=== PATIENT | female | born 1980 | race African-American/Black ===

== ENCOUNTER 2019-11-16 09:19 | Inpatient (IN) ==
[2019-11-16] MEDS ORDERED: NICOTINE 21 MG/24 HR PATCH TRANSDERM PRN (09:30)
[2019-11-16] MEDS ORDERED: THIAMINE INJ 100 MG, FOLIC ACID INJ 1 MG, MULTIVITAMIN INJ 10 ML in SODIUM CHLORIDE 0.9... IV ONE (09:30)
[2019-11-16] MEDS ORDERED: LORazepam 2 MG/1 ML VIAL IV PRN (09:30)
[2019-11-16] MEDS ORDERED: DICYCLOMINE 10 MG CAPSULE PO PRN (09:30)
[2019-11-16] MEDS ORDERED: PROMETHAZINE 25 MG/1 ML VIAL IM PRN (09:30)
[2019-11-16] MEDS ORDERED: ONDANSETRON 4 MG/2 ML VIAL IV PRN (09:30)
[2019-11-16 10:24] LABS: Basophils # 0.1 10*3/uL (0.0-0.2); Basophils % 0.8 % (0.0-0.8); Eosinophils # 0.4 10*3/uL (0.0-0.87); Eosinophils % 4.5 % (0.00-10.9); Hematocrit 33.6 VOL% (35.7-47.0); Hemoglobin 11.1 GM/DL (12.0-16.0); Immature Granulocytes % 0.8 %; Immature Granulocytes Absolute 0.06 #; Lymphocytes # 2.5 10*3/uL (1.4-4.0); Lymphocytes % 31.8 % (21.3-54.2); Mean Corpuscular Volume 97.7 FL (87-102); Mean Platelet Volume 10.7 FL (9.6-12.0); Monocytes % 6.8 % (1.7-12.7); Neutrophils % 55.3 % (38.7-73.9); Platelet Count 50 T/CUMM (130-400); Red Blood Count 3.44 MC/CUMM (3.8-5.5); Red Cell Distribution Width 20.2 % (9.3-17.3); White Blood Count 7.9 T/CUMM (4-12)
[2019-11-16 10:44] LABS: Hypochromasia Slight; Platelet Estimate Decreased; Target Cells Few
[2019-11-16] MEDS: LORazepam 1 MG TABLET PO SCH ×4 (11:03→20:38)
[2019-11-16] MEDS: chlordiazePOXIDE 25 MG CAPSULE PO SCH ×3 (11:04→20:37)
[2019-11-16] MEDS: PANTOPRAZOLE 40 MG TABLET PO SCH (11:04)
[2019-11-16 11:18] LABS: Albumin 2.5 G/DL (3.4-5.0); Bilirubin,Total 6.6 MG/DL (0.2-1.0); Calcium 8.8 MG/DL (8.5-10.1); Thyroid Stimulating Hormone 0.816 uIU/ml (0.358-3.74); Total Protein 7.5 G/DL (6.4-8.3)
[2019-11-16] MEDS ORDERED: GLUCAGON 1 MG VIAL IM PRN (11:28)
[2019-11-16] MEDS ORDERED: DEXTROSE 50% 25 GM/50 ML VIAL IV PRN (11:28)
[2019-11-16] MEDS ORDERED: POTASSIUM CHLORIDE 20 MEQ TABLET PO ONE (11:29)
[2019-11-16] MEDS: INSULIN REGULAR 100 UNIT/ML SUBCUT SCH ×3 (12:58→20:43)
[2019-11-16] MEDS ORDERED: MAGNESIUM SULF RIDER 4 GM in PREMIX 1 EACH IV ONE (13:24)
[2019-11-16] MEDS: POTASSIUM CHLORIDE INJ 40 MEQ in DEXTROSE 5% 1,000 ML IV SCH ×2 (17:23→20:42)
[2019-11-16] MEDS: BUTALBITAL/ACETAMIN/CAFFEINE 50-325-40 MG TABLET PO PRN (19:06)
[2019-11-16] MEDS: NAPROXEN 250 MG TABLET PO PRN (19:06)
[2019-11-16 20:48] LABS: Apearance,Urine CLEAR (Clear); Bacteria,Urine Occasional /HPF (Few); Blood, Urine Negative (Negative); Calcium Oxalate Crystals,Urine Few /HPF (Few); Glucose,Urine (UA) Negative (Negative); Hyaline Casts,Urine 1 /LPF (0-3); Ketones,Urine Negative (Negative); Mucus,Urine Occasional /LPF (Occasional); Nitrite,Urine Negative (Negative); Protein,Urine Negative; RBC,Urine 21 /HPF (0-4); Squamous Epithelial Cell,Urine Occasional /HPF (0-10); Urine Color Amber (Yellow); Urine Specific Gravity 1.016 (1.001-1.035); WBC,Urine 6 /HPF (0-6)
[2019-11-16 20:49] LABS: Bilirubin,Urine Small mg/dL (Negative)
[2019-11-16 20:55] LABS: Barbiturates Screen,Urine Negative (Negative); Benzodiazepines Screen,Urine Positive (Negative); Cannabinoid Screen,Urine Positive (Negative); Opiate Screen,Urine Negative (Negative); Phencyclidine Screen,Urine Negative (Negative)
[2019-11-17] MEDS: LORazepam 1 MG TABLET PO SCH ×5 (01:29→20:55)
[2019-11-17] MEDS: chlordiazePOXIDE 25 MG CAPSULE PO SCH ×3 (03:49→18:27)
[2019-11-17] MEDS: POTASSIUM CHLORIDE INJ 40 MEQ in DEXTROSE 5% 1,000 ML IV SCH (06:15)
[2019-11-17] MEDS: PANTOPRAZOLE 40 MG TABLET PO SCH (09:57)
[2019-11-17] MEDS: INSULIN REGULAR 100 UNIT/ML SUBCUT SCH ×4 (10:00→20:54)
[2019-11-17] MEDS: BUTALBITAL/ACETAMIN/CAFFEINE 50-325-40 MG TABLET PO PRN (20:59)
[2019-11-18] MEDS: chlordiazePOXIDE 25 MG CAPSULE PO SCH ×3 (01:29→17:51)
[2019-11-18] MEDS: LORazepam 1 MG TABLET PO SCH ×3 (03:40→17:51)
[2019-11-18 05:32] LABS: Calcium 8.2 MG/DL (8.5-10.1); Osmolality,Calculated 271.8 MOS/KG (273-304)
[2019-11-18] MEDS: INSULIN REGULAR 100 UNIT/ML SUBCUT SCH ×4 (07:40→20:31)
[2019-11-18] MEDS ORDERED: MAGNESIUM SULF RIDER 2 GM in PREMIX 1 EACH IV ONE (08:30)
[2019-11-18] MEDS: PANTOPRAZOLE 40 MG TABLET PO SCH (08:54)
[2019-11-18] MEDS: BUTALBITAL/ACETAMIN/CAFFEINE 50-325-40 MG TABLET PO PRN (12:47)
[2019-11-18] MEDS: NAPROXEN 250 MG TABLET PO PRN (17:51)
[2019-11-19] MEDS: chlordiazePOXIDE 25 MG CAPSULE PO SCH (02:13)
[2019-11-19] MEDS: LORazepam 1 MG TABLET PO SCH (02:13)
[2019-11-19] MEDS: HydrOXYzine PAMOATE 50 MG CAPSULE PO PRN ×2 (03:36→21:53)
[2019-11-19] MEDS: INSULIN REGULAR 100 UNIT/ML SUBCUT SCH ×4 (08:44→22:20)
[2019-11-19] MEDS: PANTOPRAZOLE 40 MG TABLET PO SCH (08:46)
[2019-11-19] MEDS: CIPROFLOXACIN 500 MG TABLET PO SCH ×2 (11:12→21:53)
[2019-11-19] MEDS: NAPROXEN 250 MG TABLET PO PRN (16:41)
[2019-11-20] MEDS: INSULIN REGULAR 100 UNIT/ML SUBCUT SCH ×4 (07:15→20:57)
[2019-11-20] MEDS: CIPROFLOXACIN 500 MG TABLET PO SCH ×2 (08:56→20:57)
[2019-11-20] MEDS: PANTOPRAZOLE 40 MG TABLET PO SCH (08:56)
[2019-11-20] MEDS: NAPROXEN 250 MG TABLET PO PRN (15:24)
[2019-11-21] MEDS: PANTOPRAZOLE 40 MG TABLET PO SCH (08:20)
[2019-11-21] MEDS: METHOCARBAMOL 750 MG TABLET PO PRN ×2 (08:20→14:33)
[2019-11-21] MEDS: INSULIN REGULAR 100 UNIT/ML SUBCUT SCH ×4 (08:20→20:21)
[2019-11-21] MEDS: CIPROFLOXACIN 500 MG TABLET PO SCH ×2 (08:20→20:22)
[2019-11-21] MEDS: levETIRAcetam 500 MG TABLET PO SCH (23:54)
[2019-11-22 04:27] VITALS: BP 106/73
[2019-11-22] MEDS: levETIRAcetam 500 MG TABLET PO SCH (05:34)
[2019-11-22] MEDS ORDERED: busPIRone 10 MG TABLET PO SCH (09:00)
[2019-11-22] MEDS ORDERED: FERROUS SULFATE 325 MG TABLET PO SCH (09:00)
[2019-11-22] MEDS ORDERED: ESCITALOPRAM 10 MG TABLET PO SCH (09:00)
[2019-11-22] MEDS ORDERED: PHYTONADIONE 100 MCG PO SCH (09:00)
== END 2019-11-22 05:45 | DRG 897 ==
LOC: SUATTDRO 09:30 → N.4E 09:30
PROVIDERS: ADMIT Internal Medicine; ATTEND Internal Medicine